=== PATIENT | female | born 1960 | race Caucasian/White ===

== ENCOUNTER 2021-07-02 16:33 | Emergency (ER) | payer MEDICAID, OTHER ==
[~2021-07-02] VITALS: Ht 167.6 cm; Wt 77.1 kg
--- NOTE | 2021-07-02 17:15 | NUR ---
Pt c/o pain in both lewer legs, made aware.
--- NOTE | 2021-07-02 18:25 | NUR ---
U/S finished bedside -- no DVT
--- NOTE | 2021-07-02 19:10 | NUR ---
RCEIVED REPORT FROM NERY, NAILA. PT NOTED TO BE IN BED, DENIES ANY PAIN/DISCOMFORT.
[2021-07-02] MEDS ORDERED: IBUP-1955 PO (19:23)
[2021-07-02 19:56] VITALS: BP 122/81
--- NOTE | 2021-07-02 19:56 | NUR ---
Patient discharged to home in stable condition. Steady gait. Written and verbal after care instructions given. Patient verbalizes understanding of instructions. Stressed follow up or return to ER for worsening s/s. Denies any pain/discomfort. Provided pt with CD copy of US.
== END 2021-07-02 19:57 | disposition home or self-care (01) ==
LOC: ER 16:33
DX: I80.02 Phlebitis and thrombophlebitis of superficial vessels of left lower extremity (principal); R60.0 Localized edema; J45.909 Unspecified asthma, uncomplicated; Z88.2 Allergy status to sulfonamides
CPT/HCPCS: A4663

== ENCOUNTER 2022-02-11 12:46 | Emergency (ER) | payer MEDICAID ==
[~2022-02-11] VITALS: Ht 167.6 cm; Wt 81.6 kg
[~2022-02-11 12:46] MED LIST: IBUP-1955 PO
[2022-02-11] MEDS ORDERED: LEVO25TA9 PO (13:29)
[2022-02-11] MEDS ORDERED: HYDR25TA4 PO (13:29)
[2022-02-11] MEDS ORDERED: ACETAMINOPHEN 325 MG TABLET PO ONE (13:30)
[2022-02-11] MEDS ORDERED: METOCLOPRAMIDE HCL 10 MG/2 ML VIAL IV ONE (13:30)
[2022-02-11] MEDS ORDERED: diphenhydrAMINE 50 MG/1 ML VIAL IV ONE (13:30)
[2022-02-11] MEDS ORDERED: KETOROLAC TROMETHAMINE 15 MG INJ IVP ONE (13:30)
[2022-02-11] MEDS ORDERED: IV NORMAL SALINE 1000 ML BAG IV ONE (13:30)
[2022-02-11] MEDS ORDERED: METOCLOPRAMIDE HCL 10 MG/2 ML VIAL ONE (13:31)
[2022-02-11] MEDS ORDERED: ACETAMINOPHEN ES 500 MG TABLET ONE (13:31)
[2022-02-11] MEDS ORDERED: KETOROLAC TROMETHAMINE 15 MG INJ ONE (13:31)
[2022-02-11] MEDS ORDERED: diphenhydrAMINE 50 MG/1 ML VIAL ONE (13:31)
[2022-02-11] MEDS ORDERED: IOHEXOL 350 100 ML INFUS..BTL ONE (13:34)
[2022-02-11] MEDS ORDERED: SWABABLE VALVE TRANSFER SET EA MC ONE (13:34)
[2022-02-11] MEDS ORDERED: IV NORMAL SALINE 250 ML IV ONE (13:34)
[2022-02-11 13:35] LABS: HEMATOCRIT 45.5 % (31.2-41.9); MEAN CORPUSCULAR HEMOGLOBIN 29.9 uug (24.7-32.8); MEAN CORPUSCULAR VOLUME 87.8 fL (75.5-95.3); PLATELET COUNT (AUTO) 203 K/uL (179-408)
[2022-02-11 13:40] LABS: CARBON DIOXIDE 27 mmol/L (21-32); CHLORIDE 100 mmol/L (98-107); CREATININE 0.6 mg/dL (0.6-1.3); GLUCOSE 93 mg/dL (74-106); POTASSIUM 3.5 mmol/L (3.5-5.1); UREA NITROGEN, BLOOD 10 mg/dL (7-18)
--- NOTE | 2022-02-11 14:20 | NUR ---
Pt refused Ct scan, Dr Perry at the bedside talking to pt.
--- NOTE | 2022-02-11 15:20 | NUR ---
Pt states her headache/neck pain decreased, and is wishing to be discharged.
--- NOTE | 2022-02-11 15:53 | NUR ---
IV removed. Catheter intact and site benign. Pressure and 4x4 gauze applied to site. No bleeding noted.
[2022-02-11 15:54] VITALS: BP 121/66
--- NOTE | 2022-02-11 15:54 | NUR ---
Patient discharged to home in stable condition. Written and verbal after care instructions given. Patient verbalizes understanding of instructions. Stressed follow up or return to ER for worsening s/s.
== END 2022-02-11 15:54 | disposition home or self-care (01) ==
LOC: ER 12:46
DX: U07.1 COVID-19 (principal); R51.9 Headache, unspecified; Z88.2 Allergy status to sulfonamides; E03.9 Hypothyroidism, unspecified; Z79.890 Hormone replacement therapy; R94.31 Abnormal electrocardiogram [ECG] [EKG]
CPT/HCPCS: 36415; 71045; 80048; 84439; 84443; 84484; 85025; 85730; 87426; 93005; 96361; 96374; 96375; 99285; J1200; J1885; J2765; J7040; A4663; A9150; Q9967

== ENCOUNTER 2022-06-29 16:52 | Emergency (ER) | payer MEDICAID ==
[~2022-06-29] VITALS: Ht 170.2 cm; Wt 90.7 kg
[~2022-06-29 16:52] MED LIST changes: +HYDR25TA4 PO; +LEVO25TA9 PO
[2022-06-29 17:51] VITALS: BP 144/68
--- NOTE | 2022-06-29 17:52 | NUR ---
Patient discharged to home in stable condition. Written and verbal after care instructions given. Patient verbalizes understanding of instructions. Stressed follow up or return to ER for worsening s/s. Pt walked out of ER w/ steady gait.
== END 2022-06-29 17:54 | disposition home or self-care (01) ==
LOC: ER 16:53
DX: S20.212A Contusion of left front wall of thorax, initial encounter (principal); S63.502A Unspecified sprain of left wrist, initial encounter; W01.0XXA Fall on same level from slipping, tripping and stumbling without subsequent striking against object, initial encounter; Y92.89 Other specified places as the place of occurrence of the external cause
CPT/HCPCS: 71101; 73090; 73110; A4663

== ENCOUNTER 2023-05-15 18:34 | Emergency (ER) | payer MEDICAID ==
[~2023-05-15] VITALS: Ht 170.2 cm; Wt 79.4 kg
[2023-05-15] MEDS ORDERED: CEFTRIAXONE 1 G VIAL ONE (19:12)
[2023-05-15] MEDS ORDERED: CLINDAMYCIN HCL 300 MG CAPSULE ONE (19:13)
[2023-05-15] MEDS ORDERED: CEFTRIAXONE 1 G VIAL IM ONE (19:15)
[2023-05-15] MEDS ORDERED: CLINDAMYCIN HCL 150 MG CAPSULE PO ONE (19:15)
[2023-05-15] MEDS ORDERED: CEPH500T PO (19:56)
[2023-05-15] MEDS ORDERED: CLIN300C12 PO (19:56)
[2023-05-15 20:05] VITALS: BP 127/77; TEMP 98.4; O2SAT 96
== END 2023-05-15 20:06 | disposition home or self-care (01) ==
LOC: ER 18:36
DX: L03.115 Cellulitis of right lower limb (principal); E03.9 Hypothyroidism, unspecified; Z88.2 Allergy status to sulfonamides; Z79.1 Long term (current) use of non-steroidal anti-inflammatories (NSAID); Z79.2 Long term (current) use of antibiotics; Z79.899 Other long term (current) drug therapy
CPT/HCPCS: 99285; 93971; 96372; J0696; A4663